=== PATIENT | male | born 1980 | race Caucasian/White ===

== ENCOUNTER 2022-08-28 10:46 | Emergency (ER) | payer MEDICAID ==
[~2022-08-28] VITALS: Ht 180.3 cm; Wt 100.0 kg
[2022-08-28 11:00] VITALS: BP 162/100
[2022-08-28] MEDS ORDERED: BUPR1FIL3 SL (11:38)
--- NOTE | 2022-08-29 10:59 | NUR ---
Received order for consult. Called patient and left message.
--- NOTE | 2022-08-30 16:16 | NUR ---
Patient called me back and is interested in getting set up with a MAT provider. I gave patient a couple options. Patient is waiting for his insurance to go through, so he is going to call both places I gave him. I told him to come back in and get more medication if needed in the meantime.
== END 2022-08-28 11:56 | disposition home or self-care (01) ==
LOC: ER 10:47
DX: F11.20 Opioid dependence, uncomplicated (principal)
CPT/HCPCS: 99283

== ENCOUNTER 2022-09-04 08:57 | Emergency (ER) | payer MEDICAID, OTHER ==
[~2022-09-04] VITALS: Ht 180.3 cm; Wt 100.0 kg
[~2022-09-04 08:57] MED LIST: BUPR1FIL3 SL
[2022-09-04 09:13] VITALS: BP 145/84
[2022-09-04] MEDS ORDERED: buprenorphine/naloxone 8MG-2MG SUBlingual film SL ONE (10:15)
[2022-09-05] MEDS ORDERED: BUPR1FIL3 SL (08:59)
== END 2022-09-04 10:28 | disposition home or self-care (01) ==
LOC: ER 08:58
DX: Z76.0 Encounter for issue of repeat prescription (principal); F11.988 Opioid use, unspecified with other opioid-induced disorder
CPT/HCPCS: 99282

== ENCOUNTER 2022-09-05 06:47 | Emergency (ER) | payer MEDICAID, OTHER ==
[~2022-09-05] VITALS: Ht 180.3 cm; Wt 100.0 kg
[2022-09-05 06:52] VITALS: BP 163/92
[2022-09-05] MEDS ORDERED: buprenorphine/naloxone 8MG-2MG SUBlingual film SL ONE (08:00)
--- NOTE | 2022-09-05 08:37 | NUR ---
Met with patient. He needs a RX for Suboxone. He can't get into [facility] for another week.
[2022-09-05] MEDS ORDERED: BUPR1FIL3 SL (08:59)
== END 2022-09-05 09:14 | disposition home or self-care (01) ==
LOC: ER 06:50
DX: Z76.0 Encounter for issue of repeat prescription (principal)
CPT/HCPCS: 99282

== ENCOUNTER 2022-09-30 08:12 | Emergency (ER) | payer MEDICAID ==
[~2022-09-30] VITALS: Ht 180.3 cm; Wt 104.0 kg
[2022-09-30 08:19] VITALS: BP 163/99
[2022-09-30] MEDS ORDERED: buprenorphine/naloxone 8MG-2MG SUBlingual film SL STA (10:01)
[2022-10-01] MEDS ORDERED: BUPR1FIL5 SL (09:37)
[2022-10-01] MEDS ORDERED: BUPR1TAB45 SL (09:43)
== END 2022-09-30 10:48 | disposition home or self-care (01) ==
LOC: ER 08:12
DX: F11.29 Opioid dependence with unspecified opioid-induced disorder (principal)
CPT/HCPCS: 99282

== ENCOUNTER 2022-10-01 08:17 | Emergency (ER) | payer MEDICAID ==
[~2022-10-01] VITALS: Ht 180.3 cm; Wt 104.5 kg
[2022-10-01 08:33] VITALS: BP 174/93
[2022-10-01] MEDS ORDERED: BUPR1FIL5 SL (09:37)
[2022-10-01] MEDS ORDERED: BUPR1TAB45 SL (09:43)
[2022-10-02] MEDS ORDERED: buprenorphine/naloxone 8MG-2MG SUBlingual film SL SCH (08:00)
== END 2022-10-01 10:20 | disposition home or self-care (01) ==
LOC: ER 08:24
DX: F11.29 Opioid dependence with unspecified opioid-induced disorder (principal)
CPT/HCPCS: 99281